=== PATIENT | female | born 1965 | race Two or more races ===

== ENCOUNTER 2023-01-01 07:05 | Day surgery (SDC) | payer OTHER ==
[~2023-01-01] VITALS: Ht 157.5 cm; Wt 119.0 kg
[2023-01-01] VITALS (8 sets, daily range): BP systolic 88–132; BP diastolic 47–84; PULSE 68–81; RESP 12–22; TEMP 98.2; O2SAT 91–96
[~2023-01-01 07:05] MED LIST: FURO20TA3 PO
[2023-01-01] MEDS ORDERED: FURO40TA4 PO ×2 (07:39→07:45)
[2023-01-01] MEDS ORDERED: LIDOCAINE 2%HCL (LOCAL ANESTH.) INJ 20ML MDV ONE ×2 (07:40→10:09)
[2023-01-01] MEDS ORDERED: POTA10TA51 PO (07:40)
[2023-01-01] MEDS ORDERED: IOHEXOL 350 MG/ML 100ML IJ ONE (07:41)
[2023-01-01] MEDS ORDERED: IODIXANOL 320MG/ML 100ML BTL IV ONE ×3 (07:41→10:09)
[2023-01-01] MEDS ORDERED: PRAV20TA3 PO (07:42)
[2023-01-01] MEDS ORDERED: IBUP-1456 PO (07:43)
[2023-01-01] MEDS ORDERED: MONT-8 PO (07:44)
[2023-01-01] MEDS ORDERED: LIDOCAINE 2%HCL (LOCAL ANESTH.) INJ 10ml MDV ONE (09:12)
[2023-01-01] MEDS ORDERED: ANGIOMAX 250 MG VIAL IV ONE (10:08)
[2023-01-01] MEDS ORDERED: fentaNYL CITRATE 100 MCG/2 ML VL ONE (10:08)
[2023-01-01] MEDS ORDERED: VERAPAMIL 2.5MG/ML INJ 2ML VIAL IV ONE (10:08)
[2023-01-01] MEDS ORDERED: HEPARIN SODIUM (PORCINE) 5000 UNITS/ML 1ML VIAL ONE ×2 (10:08→10:35)
[2023-01-01] MEDS ORDERED: SODIUM CHL 0.9% 0 ML ONE (10:09)
[2023-01-01] MEDS ORDERED: MIDAZOLAM HCL 2MG/2ML 2ml VIAL (1mg/ml) ONE (10:09)
== END 2023-01-01 13:13 | disposition home or self-care (01) ==
LOC: CATH 07:05
PROVIDERS: ATTEND Internal Medicine
DX: R94.39 Abnormal result of other cardiovascular function study (principal); I25.10 Atherosclerotic heart disease of native coronary artery without angina pectoris; Z79.1 Long term (current) use of non-steroidal anti-inflammatories (NSAID)
CPT/HCPCS: 93458; C1725; C1769; C1894; J1644; J2001; J2250; J3010; J7030; Q9967; 99152